=== PATIENT | female | born 2000 | race Two or more races ===

== ENCOUNTER 2024-06-05 23:45 | Emergency (ER) | payer MEDICAID, SELFPAY ==
[2024-06-05 23:48] VITALS: BP 155/96; PULSE 109; RESP 17; TEMP 37.1; O2SAT 98
[2024-06-05 23:52] VITALS: PULSE 60; RESP 24; O2SAT 99; BMI 27.4
--- NOTE | 2024-06-06 02:42 | EDNOTE_ITS ---
ED Weakness RME/HPI General Chief complaint: Weakness Stated complaint: FULL BODY WEAKNESS Time Seen by Provider: 06/06/24 01:37 Arrival date/time: 06/05/24 23:45 Related Data Previous Rx's ?Medication ?Instructions ?Recorded metronidazole 500 mg tablet 500 mg PO Q8HR #21 tabs Allergies Allergy/AdvReac Type Severity Reaction Status Date / Time No Known Drug Allergies Allergy Unknown Verified 09/30/18 12:10 Course Vital Signs Vital signs: Vital Signs Temperature 98.8 F 06/05/24 23:48 Pulse Rate 109 H 06/05/24 23:48 Respiratory Rate 17 06/05/24 23:48 Blood Pressure 155/96 H 06/05/24 23:48 Pulse Oximetry (%) 98 06/05/24 23:48 Oxygen Delivery Method Room Air 06/05/24 23:48 Discharge Plan Plan Patient Disposition: HOME (Self Care) Disposition Comment: stable Prescriptions/Referrals Prescriptions/Med Rec: No Action metronidazole 500 mg tablet 500 mg PO Q8HR Qty: 21 0RF Referrals: Lucian ([facility])Charmaine PA-C [Primary Care Provider] - In 1 week Problem List Clinical Impression: Intoxication by drug Patient/Caregiver Discharge Instructions Other Activity Instructions:: Discontinue marijuana at this time. Follow-up with primary care within the next 2 to 3 days and discuss depressed mood. Hydrate well with adequate p.o. fluid. Return to the ED if your symptoms worsen or change. Print Language: Czech Stand Alone Forms: Kika Award Info., Patient Portal Info Letter JOHN/SURINDER Supervising Physician PA/SURINDER Supervising Physician: Dr. Card
== END 2024-06-06 02:48 | disposition home or self-care (01) ==
PROVIDERS: Emergency Provider Emergency Medicine; PCP Physician Assistant
DX: F12.929 Cannabis use, unspecified with intoxication, unspecified (principal)
CPT/HCPCS: 99281